=== PATIENT | female | born 1990 | race Two or more races ===

== ENCOUNTER 2017-06-06 15:07 | Emergency (ER) | payer SELFPAY | END 2017-06-06 17:13 | disposition home or self-care (01) | LOC: ER 15:07 | DX: S02.2XXA Fracture of nasal bones, initial encounter for closed fracture (principal); W22.8XXA Striking against or struck by other objects, initial encounter; Y93.89 Activity, other specified; Y92.89 Other specified places as the place of occurrence of the external cause; Y99.8 Other external cause status | CPT/HCPCS: 70486; 99284-25 ==

== ENCOUNTER 2019-11-22 18:37 | Emergency (ER) | payer SELFPAY ==
[~2019-11-22] VITALS: Ht 165.1 cm; Wt 52.3 kg
[~2019-11-22 18:37] MED LIST: PREN1TAB58 PO; TRAM50TA PO
[2019-11-22 19:55] LABS: BILIRUBIN,URINE NEGATIVE (NEG); CLARITY,URINE CLEAR; COLOR,URINE YELLOW; NITRITE,URINE NEGATIVE (NEG); PH,URINE 7.5 (<5.0-8.0); PROTEIN,URINE NEGATIVE (NEG-TRACE); UROBILINOGEN,URINE 0.2 mg/dL (0.2 mg/dL)
[2019-11-22 20:01] LABS: BACTERIA,URINE FEW /HPF (0-FEW); SQUAMOUS EPITHELIAL CELL,UR MOD /LPF
[2019-11-22] MEDS ORDERED: ONDANSETRON PF 4 MG/2 ML VIAL. ONE (20:14)
[2019-11-22] MEDS ORDERED: IV NORMAL SALINE 1000ML BAG 1,000 ML IV ONE (20:15)
[2019-11-22] MEDS ORDERED: cefTRIAXone IM 250 MG VIAL IM ONE (20:15)
[2019-11-22] MEDS ORDERED: fentaNYL PF VIAL 100 MCG/2 ML VIAL IV ONE (20:15)
[2019-11-22] MEDS ORDERED: AZITHROMYCIN 250 MG TABLET. PO ONE (20:15)
[2019-11-22] MEDS ORDERED: ONDANSETRON PF 4 MG/2 ML VIAL. IV ONE (20:15)
--- NOTE | 2019-11-22 21:49 | RAD ---
TRANSVAGINAL History: Right adnexal tenderness, pelvic pain Comparison: None. Findings: Multiple transvaginal sonographic images of the pelvis are submitted. Uterus measured 9.8 x 6 x 4.6 cm. Endometrium measured 0.7 cm. Right ovary measured 3.5 x 1.9 x 1.7 cm with normal low resistance vascularity. There are a few follicles of the right ovary. Left ovary measured 4.9 x 4.5 x 3.9 cm with normal low resistance vascularity. There is a focus of different heterogeneous echogenicity of the left ovary about 3.1 x 3.3 x 3 cm, not associated with significant internal vascularity. There is mild free fluid. Impression: 1. There is a heterogeneous lesion of the left ovary which may be complex/hemorrhagic cyst. There is minimal free fluid. Electronically signed by: Forest Oneil MD (11/22/2019 9:46 PM) [facility]
[2019-11-22 21:58] VITALS: BP 117/62
[2019-11-22] MEDS ORDERED: METR500T PO (22:03)
--- NOTE | 2019-11-22 22:04 | PHYS DOC ---
Past Medical History Past Medical History: No Pertinent History Past Surgical History: Other Additional Past Surgical Histo: NOSE Smoking Status: Never Smoker Alcohol Use: None Drug Use: None General Adult EDM: Chief Complaint: VAGINAL PROBLEM HPI: HPI: Patient is a 29 year old female who presents the emergency department with complaints of suprapubic abdominal pain and pain with urination that started tonight. She reports that the discomfort started after she had a bowel movement. She denies any nausea, vomiting, diarrhea, constipation, or blood in her stool. Patient states that yesterday she did notice some abnormal vaginal discharge but she recently got off of her menstrual cycle last week though she attributes the discharge to that. Patient requests that she would be tested for sexually transmitted infection, she denies any known exposure to STIs. She currently rates her pain a 8-9 out of 10 on the pain scale, the pain comes and goes and is sharp in nature. She states that pulling her legs up to her chest makes the pain feel better, she denies any radiation of the pain. Review of Systems: Review of Systems: Constitutional: Denies fever or chills. [] Complete review of systems negative unless otherwise documented in the HPI Heart Score: Risk Factors: Risk Factors: DM, Current or recent (<one month) smoker, HTN, HLP, family hist ory of CAD, obesity. Risk Scores: Score 0 - 3: 2.5% MACE over next 6 weeks - Discharge Home Score 4 - 6: 20.3% MACE over next 6 weeks - Admit for Clinical Observation Score 7 - 10: 72.7% MACE over next 6 weeks - Early Invasive Strategies Current Medications: Current Medications Medications (Trade) Dose Ordered Sig/[facility] Start Time Stop Time Status Last Admin Dose Admin Azithromycin (Zithromax) 1,000 mg 1X ONCE 11/22/19 20:15 11/22/19 20:16 DC 11/22/19 20:18 1,000 MG Ceftriaxone Sodium (Rocephin Im) 250 mg 1X ONCE 11/22/19 20:15 11/22/19 20:16 DC 11/22/19 20:23 250 MG Fentanyl Citrate (Fentanyl 2ml Vial) 50 mcg 1X ONCE 11/22/19 20:15 11/22/19 20:16 DC 11/22/19 20:21 50 MCG Ondansetron HCl (Zofran) 4 mg STK-MED ONCE 11/22/19 20:14 11/22/19 20:15 DC Sodium Chloride 1,000 ml @ 1,000 mls/hr 1X ONCE 11/22/19 20:15 11/22/19 21:14 DC 11/22/19 20:23 1,000 MLS/HR Allergies: Allergies: Allergies Coded Allergies Type Severity Reaction Last Updated Verified No Known Drug Allergies 06/15/14 No Physical Exam: PE: Constitutional: Well developed, well nourished, no acute distress, non-toxic appearance. HENT: Normocephalic, atraumatic, bilateral external ears normal, nose normal. Eyes: PERRLA, EOMI, conjunctiva normal, no discharge. Neck: Normal range of motion, no stridor. Cardiovascular: Heart rate regular rhythm Lungs & Thorax: Respirations even and unlabored, no retractions, no respiratory distress Pelvic Exam: [employer] present Jocelin COOK Abdomen: Suprapubic tenderness to palpation, soft, no rebound tenderness, no guarding External Genitalia: Normal Skin Speculum: Normal vaginal mucosa, purulent cervical discharge with strawberry appearing cervix, cervix and mom friable Bimanual: Right adnexal tenderness cervical motion tenderness, no palpable adnexal mass, left adnexa nontender Skin: Warm, dry, no erythema, no rash. Extremities: No cyanosis, ROM intact, no edema. Neurologic: Alert and oriented X 3, no focal deficits noted. Psychologic: Affect normal, judgement normal, mood normal. Current Patient Data: Labs: Laboratory Tests Test 11/22/19 19:47 11/22/19 19:50 Urine Collection Type Unknown Urine Color Yellow Urine Clarity Clear Urine pH 7.5 (<5.0-8.0) Urine Specific [place] 1.010 (1.000-1.030) Urine Protein Negative mg/dL (NEG-TRACE) Urine Glucose (UA) Negative mg/dL (NEG) Urine Ketones (Stick) Negative mg/dL (NEG) Urine Blood Small (NEG) Urine Nitrite Negative (NEG) Urine Bilirubin Negative (NEG) Urine Urobilinogen Dipstick 0.2 mg/dL (0.2 mg/dL) Urine Leukocyte Esterase Moderate (NEG) Urine RBC 6-10 /HPF (0-2) Urine WBC 1-4 /HPF (0-4) Urine Squamous Epithelial Cells Mod /LPF Urine Bacteria Few /HPF (0-FEW) POC Urine HCG, Qualitative Hcg negative (Negative) Microbiology 11/22/19 Wet Prep - Final, Complete Vital Signs: Vital Signs Date Time Temp Pulse Resp B/P (MAP) Pulse Ox O2 Delivery O2 Flow Rate FiO2 11/22/19 20:21 16 99 Room Air EKG: EKG: [] Radiology/Procedures: Radiology/Procedures: PROCEDURE: TRANSVAGINAL TRANSVAGINAL History: Right adnexal tenderness, pelvic pain Comparison: None. Findings: Multiple transvaginal sonographic images of the pelvis are submitted. Uterus measured 9.8 x 6 x 4.6 cm. Endometrium measured 0.7 cm. Right ovary measured 3.5 x 1.9 x 1.7 cm with normal low resistance vascularity. There are a few follicles of the right ovary. Left ovary measured 4.9 x 4.5 x 3.9 cm with normal low resistance vascularity. There is a focus of different heterogeneous echogenicity of the left ovary about 3.1 x 3.3 x 3 cm, not associated with significant internal vascularity. There is mild free fluid. Impression: 1. There is a heterogeneous lesion of the left ovary which may be complex/hemorrhagic cyst. There is minimal free fluid.[] Course & Med Decision Making: Course & Med Decision Making Pertinent Labs and Imaging studies reviewed. (See chart for details) 21-year-old female presented to the emergency department with complaints of pelvic pain and dysuria, Urinalysis revealed 6-10 red blood cells, 1-4 white blood cells, moderate squamous cells, and few bacteria, hCG is negative, wet mount is concerning for bacterial vaginosis. Pelvic exam is concerning for sexually transmitted infection. A prescription was written for Flagyl 500 mg p.o. twice daily x7 days. Patient was treated prophylactically with 250 mg of IM Rocephin, and 1 g of PO Zithromax. Patient was instructed to avoid having intercourse until the results of gonorrhea and chlamydia testing are available, patient was notified that these results would not be available for 48 hours. If one or both of these tests is positive, patient needs to refrain from intercourse for approximately 1 week following the treatment of any current partners. Patient verbalized an understanding of home care, medications, follow-up, and return to ED instructions and was in agreement with the plan of care. [] Dragon Disclaimer: Dragon Disclaimer: This electronic medical record was generated, in whole or in part, using a voice recognition dictation system. Departure Departure Impression: Primary Impression: Pelvic pain Additional Impressions: Contact with and (suspected) exposure to infections with a predominantly sexual mode of transmission Bacterial vaginosis Disposition: HOME, SELF-CARE Condition: STABLE Referrals: NO PCP (PCP) Patient Instructions: Bacterial Vaginosis, [id number], Pelvic Pain, Female, [id number], Sexually Transmitted Disease, [id number] Additional Instructions: Fill the prescription and use as directed. Recommend that you go to your local health department for comprehensive sexually transmitted disease testing. You have been treated for a suspected gonorrhea and chlamydia. Avoid having intercourse until the results of gonorrhea and chlamydia testing are available, these results will not be available for 48 hours. If one or both of these tests is positive, you need to refrain from intercourse for approximately 1 week following the treatment of any current partners. Follow-up with your primary care doctor if symptoms persist, return to ER symptoms worsen. Scripts Metronidazole (FLAGYL) 500 Mg Tablet 1 TAB PO BID, #14 TAB 0 Refills Prov: ASIF WILLARD APRN 11/22/19 Justicifation of Admission Dx: Justifications for Admission: Justification of Admission Dx: N/A ASIF WILLARD APRN Nov 22, 2019 22:04
== END 2019-11-22 22:02 | disposition home or self-care (01) ==
LOC: ER 18:37
DX: R10.2 Pelvic and perineal pain (principal); Z20.2 Contact with and (suspected) exposure to infections with a predominantly sexual mode of transmission; N76.0 Acute vaginitis; B96.89 Other specified bacterial agents as the cause of diseases classified elsewhere
CPT/HCPCS: 76830; 81001; 81025; 87086; 87491; 87591; 96372; 96374; 96375; 99285; J0696; J2405; J3010; J7030; Q0111